=== PATIENT | male | born 1980 | race Hispanic/Latino ===

== ENCOUNTER 2021-03-28 05:57 | Day surgery (SDC) | payer OTHER ==
[~2021-03-28] VITALS: Ht 170.2 cm; Wt 127.0 kg
[2021-03-28 09:34] VITALS: BP 133/76
== END 2021-03-28 09:30 | disposition home or self-care (01) | DRG 730 ==
LOC: ORM 05:57
PROVIDERS: ATTEND Urology
PROC: 0VBQ3ZZ Excision of Bilateral Vas Deferens, Percutaneous Approach (ICD-10-PCS; principal; 2021-03-28)
DX: Z30.2 Encounter for sterilization (principal)